=== PATIENT | male | born 1955 | race Caucasian/White ===

== ENCOUNTER 2017-04-11 19:13 | Inpatient (IN) | payer OTHER ==
--- NOTE | 2017-04-11 19:30 | EDPHY ---
H & P Stated Complaint: blood in stool Time Seen by Provider: 04/11/17 19:17 HPI/ROS: CHIEF COMPLAINT: Hematochezia HISTORY OF PRESENT ILLNESS: The patient is a 61-year-old male with history of ankylosing spondylitis who takes NSAIDs on a fairly frequent basis presents to the ED with a 1 day history of hematochezia. The patient has no prior history of the symptoms. The patient does not have a history of having a prior colonoscopy. The patient does not have regular primary care. The patient denies any acute abdominal pain. He denies fever, vomiting or diarrhea. The patient has had some travel to [place] recently. The patient denies any symptoms of an upper respiratory infection specifically denying fever cough or congestion. REVIEW OF SYSTEMS: A comprehensive 10 point review of systems is otherwise negative aside from elements mentioned in the history of present illness. Source: Patient Exam Limitations: No limitations - Family History Significant Family History: No pertinent family hx - Social History Smoking Status: Former smoker - Physical Exam Exam: General Appearance: Alert, no distress Eyes: Pupils equal and round no pallor or injection ENT, Mouth: Mucous membranes moist Respiratory: There are no retractions, lungs are clear to auscultation Cardiovascular: Regular rate and rhythm Gastrointestinal: Tenderness to palpation noted in the left lower quadrant Rectal exam: External hemorrhoids noted without obvious bleeding, digital rectal examination demonstrates bright red blood Neurological: Alert and oriented x4, 5/5 strength all 4 extremities Skin: Warm and dry, no rashes Musculoskeletal: Neck is supple nontender Extremities: symmetrical, full range of motion Constitutional: Initial Vital Signs Temperature (C) 36.6 C 04/11/17 19:18 Heart Rate 92 04/11/17 19:18 Respiratory Rate 18 04/11/17 19:18 Blood Pressure 146/88 H 04/11/17 19:18 O2 Delivery Mode Room Air Allergies/Adverse Reactions: No Known Allergies Allergy (Unverified 04/11/17 19:21) Medical Decision Making - Diagnostics Imaging Results: Imaging Impressions Abdomen CT 04/11/17 19:38 Impression: 1. Sigmoid diverticulosis. No acute diverticulitis, free fluid, or abscess. 2. Features consistent with ankylosing spondylitis. 3. Normal caliber atherosclerotic abdominal aorta. Findings discussed with Emergency Department physician, Fausto Boykin M.D. , on April 11, 2017 at 2028. ED Course/Re-evaluation: The patient presents to the ED with a 1 day history of hematochezia. He has minimal left lower quadrant tenderness noted on exam. The patient has no obvious bleeding hemorrhoid. The patient does have a history of ankylosing spondylitis and NSAID usage. The patient was noted to be hemodynamically stable upon arrival. He had an IV established. He was placed on a engine wiper. The patient was taken for CT scan of the abdomen pelvis which demonstrates diverticulosis without diverticulitis. The patient received 2 L of normal saline. I recheck his hematocrit. His gone from mid 30's to 24's. The patient continues to be hemodynamically stable. Consultation was made with Dr. Carpenter who is aware of the patient's admission to the hospital. At this point time the patient is hemodynamically stable and not having active bleeding. There is not an immediate need for emergent endoscopy. Dr. Carpenter has requested the hospitalist contact whoever is on-call for GI tomorrow morning and have them see the patient for further evaluation. I have relayed this information to Dr. Octaviano Toussaint who will admit the patient this evening. The patient has no epigastric pain or melena but has been taking NSAIDs for ankylosing spondylitis. The patient did receive 40 mg of IV Protonix. Differential Diagnosis: Differential diagnosis considered includes upper GI bleed, lower GI bleed, critical anemia, hypovolemic shock - Data Points Laboratory Results: Laboratory Results 04/11/17 Unknown 04/11/17 19:15 04/11/17 04/11/17 04/11/17 Unknown 21:45 19:26 WBC 11.24 10^3/uL H 10^3/uL (3.80-9.50) RBC 4.04 10^6/uL L 10^6/uL (4.40-6.38) Hgb 11.7 g/dL L g/dL (13.7-17.5) POC Hgb 8.2 gm/dL L gm/dL 10.5 gm/dL L gm/dL (13.7-17.5) (13.7-17.5) Hct 36.7 % L % (40.0-51.0) POC Hct 24 % L % 31 % L % (40-51) (40-51) MCV 90.8 fL fL (81.5-99.8) MCH 29.0 pg pg (27.9-34.1) MCHC 31.9 g/dL L g/dL (32.4-36.7) RDW 13.2 % % (11.5-15.2) Plt Count 281 10^3/uL 10^3/uL (150-400) MPV 10.5 fL fL (8.7-11.7) Neut % (Auto) 81.0 % H % (39.3-74.2) Lymph % (Auto) 12.0 % L % (15.0-45.0) [place] % (Auto) 5.8 % % (4.5-13.0) Eos % (Auto) 0.2 % L % (0.6-7.6) Baso % (Auto) 0.4 % % (0.3-1.7) Nucleat RBC Rel Count 0.0 % % (0.0-0.2) Absolute Neuts (auto) 9.11 10^3/uL H 10^3/uL (1.70-6.50) Absolute Lymphs (auto) 1.35 10^3/uL 10^3/uL (1.00-3.00) Absolute Monos (auto) 0.65 10^3/uL 10^3/uL (0.30-0.80) Absolute Eos (auto) 0.02 10^3/uL L 10^3/uL (0.03-0.40) Absolute Basos (auto) 0.04 10^3/uL 10^3/uL (0.02-0.10) Absolute Nucleated RBC 0.00 10^3/uL 10^3/uL (0-0.01) Immature Gran % 0.6 % % (0.0-1.1) Immature Gran # 0.07 10^3/uL 10^3/uL (0.00-0.10) PT INR APTT POC Sodium 140 mEq/L mEq/L 140 mEq/L mEq/L (134-144) (134-144) Sodium POC Potassium 4.5 mEq/L mEq/L 3.6 mEq/L mEq/L (3.3-5.0) (3.3-5.0) Potassium POC Chloride 106 mEq/L mEq/L 105 mEq/L mEq/L (97-110) (97-110) Chloride Carbon Dioxide Anion Gap POC BUN 20 mg/dL mg/dL 18 mg/dL mg/dL (7-23) (7-23) BUN Creatinine POC Creatinine 0.7 mg/dL mg/dL 0.9 mg/dL mg/dL (0.7-1.3) (0.7-1.3) Estimated GFR Glucose POC Glucose 96 mg/dL mg/dL 123 mg/dL H mg/dL (70-100) (70-100) Calcium Patient ABO/Rh Antibody Screen 04/11/17 04/11/17 04/11/17 19:15 19:15 19:15 WBC RBC Hgb POC Hgb Hct POC Hct MCV MCH MCHC RDW Plt Count MPV Neut % (Auto) Lymph % (Auto) [place] % (Auto) Eos % (Auto) Baso % (Auto) Nucleat RBC Rel Count Absolute Neuts (auto) Absolute Lymphs (auto) Absolute Monos (auto) Absolute Eos (auto) Absolute Basos (auto) Absolute Nucleated RBC Immature Gran % Immature Gran # PT 13.6 SEC SEC (12.0-15.0) INR 1.05 (0.83-1.16) APTT 27.7 SEC SEC (23.0-38.0) POC Sodium Sodium 135 mEq/L mEq/L (134-144) POC Potassium Potassium 4.5 mEq/L mEq/L (3.5-5.2) POC Chloride Chloride 99 mEq/L mEq/L (97-110) Carbon Dioxide 23 mEq/l mEq/l (22-31) Anion Gap 13 mEq/L mEq/L (8-16) POC BUN BUN 20 mg/dL mg/dL (7-23) Creatinine 1.1 mg/dL mg/dL (0.7-1.3) POC Creatinine Estimated GFR > 60 Glucose 142 mg/dL H mg/dL (70-100) POC Glucose Calcium 9.3 mg/dL mg/dL (8.5-10.4) Patient ABO/Rh A POSITIVE Antibody Screen NEGATIVE Medications Given: Discontinued Medications Sodium Chloride (Ns) 1,000 mls @ 0 mls/hr IV EDNOW ONE; Wide Open PRN Reason: Protocol Stop: 04/11/17 19:39 Last Admin: 04/11/17 19:39 Dose: 1,000 mls Sodium Chloride (Ns) 1,000 mls @ 0 mls/hr IV EDNOW ONE; Wide Open PRN Reason: Protocol Stop: 04/11/17 20:49 Last Admin: 04/11/17 20:51 Dose: 1,000 mls Point of Care Test Results: 04/11/17 04/11/17 19:26 21:45 POC Sodium 140 140 POC Potassium 3.6 4.5 POC Chloride 105 106 POC BUN 18 20 POC Creatinine 0.9 0.7 POC Glucose 123 H 96 Departure - Departure Disposition: [facility] Inpatient Acute Clinical Impression: Lower GI bleed, Ankylosing spondylitis Condition: Fair Referrals: Patient,NotPresent [Unknown] - As per Instructions
[2017-04-11] MEDS ORDERED: NS 1,000 ML IV ONE ×2 (19:38→20:48)
[2017-04-11 19:42] LABS: % IMMATURE GRANULYOCYTES 0.6 % (0.0-1.1); ABSOLUTE IMMATURE GRANULOCYTES 0.07 10^3/uL (0.00-0.10); ADD DIFF? NO; ADD MORPH? NO; ADD SCAN? NO; ATYPICAL LYMPHOCYTE FLAG 0 (0-99); FRAGMENT RBC FLAG 0 (0-99); HEMATOCRIT 36.7 % (40.0-51.0); HEMOGLOBIN 11.7 g/dL (13.7-17.5); LEFT SHIFT FLG 10 (0-99); LIPEMIA HEMOLYSIS FLAG 80 (0-99); MEAN CELL HEMOGLOBIN CONCENTR. 31.9 g/dL (32.4-36.7); MEAN CELL VOLUME 90.8 fL (81.5-99.8); MEAN PLATELET VOLUME 10.5 fL (8.7-11.7); PLATELET CLUMPS FLAG 10 (0-99); PLATELET COUNT 281 10^3/uL (150-400); RED BLOOD CELL COUNT 4.04 10^6/uL (4.40-6.38); RED CELL DISTRIBUTION WIDTH 13.2 % (11.5-15.2)
[2017-04-11 19:51] LABS: INR 1.05 (0.83-1.16); PROTIME(PATIENT) 13.6 SEC (12.0-15.0)
[2017-04-11 19:52] LABS: APTT 27.7 SEC (23.0-38.0)
[2017-04-11] MEDS ORDERED: IOPAMIDOL (ISOVUE-300) 100 ML BTL ONE (19:52)
[2017-04-11 19:55] LABS: ANION GAP 13 mEq/L (8-16); CALCIUM 9.3 mg/dL (8.5-10.4); CARBON DIOXIDE 23 mEq/l (22-31); CHLORIDE 99 mEq/L (97-110); CREATININE 1.1 mg/dL (0.7-1.3); GLOMERULAR FILTRATION RATE > 60; GLUCOSE 142 mg/dL (70-100); POTASSIUM 4.5 mEq/L (3.5-5.2); SODIUM 135 mEq/L (134-144)
[2017-04-11] MEDS ORDERED: PANTOPRAZOLE SODIUM 40 MG in NS 100 ML IV ONE (22:33)
[2017-04-12] MEDS ORDERED: ACETAMINOPHEN 325 MG TAB PO PRN (00:41)
[2017-04-12] MEDS ORDERED: oxyCODONE IR 5 MG TAB PO PRN (00:41)
[2017-04-12] MEDS ORDERED: ONDANSETRON DISINTEGRATING 4 MG TAB PO PRN (00:41)
[2017-04-12] MEDS ORDERED: ONDANSETRON 4 MG/2 ML VIAL IVP PRN (00:41)
[2017-04-12] MEDS ORDERED: PROMETHAZINE HCL 25 MG/ML INJ IVP PRN (00:41)
[2017-04-12] MEDS: NS 1,000 ML IV SCH ×4 (01:18→17:53)
[2017-04-12] MEDS: PANTOPRAZOLE SODIUM 80 MG in NS 100 ML IV SCH ×3 (01:18→20:16)
--- NOTE | 2017-04-12 01:43 | PDGENHP ---
History and Physical - Chief Complaint bleeding per rectum - History of Present Illness 61 yo M with PMH of on chronic NSAIDS as well as a remote hx of PUD and chronic GERD presenting with BRBPR beginning at approximately 11 am today. He notes that he proceeded to have multiple BMs all of which were largely just blood. He states his last bloody BM was around 6pm this evening. He has had similar issues in the past, but they were always mild and self limited, never this severe. He notes that he does have issues with severe heartburn necessitating taking cimetidine frequently throughout the day. He has been dizzy today and lightheaded, but has not had true syncope. He continues to feel weak. He has never had a colonoscopy. Patient also notes as an aside that for the last several years he has had bouts of near syncope, and these episodes are increasing in frequency. They occur at random, and often are so severe that he has to either sit down or pull his car over. He has never actually fainted and has not seen a doctor for this. He feels that deep breathing and vitamins seem to help with these issues. On a couple of occasions when this was occurring he took his pulse and noted it was in the 30s. History Information - Allergies/Home Medication List Allergies/Adverse Reactions: No Known Allergies Allergy (Unverified 04/11/17 19:21) I have personally reviewed and updated: family history, medical history, social history, surgical history - Past Medical History GERD Additional medical history: ankylosing spondylitis. superfical VTE BLE--not on AC - Surgical History Reports: no pertinent surgical hx - Family History Additional family history: Mother of complicatoins of alcoholism at age 70. 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, Review of Systems Review of Systems: ROS: 10pt was reviewed & negative except for what was stated in HPI & below Physical Exam Physical Exam: Temp Pulse Resp BP Pulse Ox 36.6 C 86 20 130/70 H 96 04/12/17 00:20 04/12/17 00:20 04/12/17 00:20 04/12/17 00:20 04/12/17 00:20 Constitutional: no apparent distress, appears nourished Eyes: PERRL, anicteric sclera Ears, Nose, Mouth, Throat: moist mucous membranes, hearing normal Cardiovascular: regular rate and rhythym, no murmur, rub, or gallop, No edema Respiratory: no respiratory distress, no rales or rhonchi Gastrointestinal: normoactive bowel sounds, soft, non-tender abdomen, No tenderness, No ascites, No guarding, No rebound Skin: warm, normal color Musculoskeletal: full muscle strength Neurologic: AAOx3 Psychiatric: interacting appropriately, not anxious, not encephalopathic Lab Data & Imaging Review 04/11/17 Unknown 04/11/17 19:15 WBC 11.24 10^3/uL (3.80-9.50) H 04/11/17 Unknown RBC 4.04 10^6/uL (4.40-6.38) L 04/11/17 Unknown Hgb 11.7 g/dL (13.7-17.5) L 04/11/17 Unknown POC Hgb 8.2 gm/dL (13.7-17.5) L 04/11/17 21:45 Hct 36.7 % (40.0-51.0) L 04/11/17 Unknown POC Hct 24 % (40-51) L 04/11/17 21:45 MCV 90.8 fL (81.5-99.8) 04/11/17 Unknown MCH 29.0 pg (27.9-34.1) 04/11/17 Unknown MCHC 31.9 g/dL (32.4-36.7) L 04/11/17 Unknown RDW 13.2 % (11.5-15.2) 04/11/17 Unknown Plt Count 281 10^3/uL (150-400) 04/11/17 Unknown MPV 10.5 fL (8.7-11.7) 04/11/17 Unknown Neut % (Auto) 81.0 % (39.3-74.2) H 04/11/17 Unknown Lymph % (Auto) 12.0 % (15.0-45.0) L 04/11/17 Unknown [place] % (Auto) 5.8 % (4.5-13.0) 04/11/17 Unknown Eos % (Auto) 0.2 % (0.6-7.6) L 04/11/17 Unknown Baso % (Auto) 0.4 % (0.3-1.7) 04/11/17 Unknown Nucleat RBC Rel Count 0.0 % (0.0-0.2) 04/11/17 Unknown Absolute Neuts (auto) 9.11 10^3/uL (1.70-6.50) H 04/11/17 Unknown Absolute Lymphs (auto) 1.35 10^3/uL (1.00-3.00) 04/11/17 Unknown Absolute Monos (auto) 0.65 10^3/uL (0.30-0.80) 04/11/17 Unknown Absolute Eos (auto) 0.02 10^3/uL (0.03-0.40) L 04/11/17 Unknown Absolute Basos (auto) 0.04 10^3/uL (0.02-0.10) 04/11/17 Unknown Absolute Nucleated RBC 0.00 10^3/uL (0-0.01) 04/11/17 Unknown Immature Gran % 0.6 % (0.0-1.1) 04/11/17 Unknown Immature Gran # 0.07 10^3/uL (0.00-0.10) 04/11/17 Unknown PT 13.6 SEC (12.0-15.0) 04/11/17 19:15 INR 1.05 (0.83-1.16) 04/11/17 19:15 APTT 27.7 SEC (23.0-38.0) 04/11/17 19:15 POC Sodium 140 mEq/L (134-144) 04/11/17 21:45 Sodium 135 mEq/L (134-144) 04/11/17 19:15 POC Potassium 4.5 mEq/L (3.3-5.0) 04/11/17 21:45 Potassium 4.5 mEq/L (3.5-5.2) 04/11/17 19:15 POC Chloride 106 mEq/L (97-110) 04/11/17 21:45 Chloride 99 mEq/L (97-110) 04/11/17 19:15 Carbon Dioxide 23 mEq/l (22-31) 04/11/17 19:15 Anion Gap 13 mEq/L (8-16) 04/11/17 19:15 POC BUN 20 mg/dL (7-23) 04/11/17 21:45 BUN 20 mg/dL (7-23) 04/11/17 19:15 Creatinine 1.1 mg/dL (0.7-1.3) 04/11/17 19:15 POC Creatinine 0.7 mg/dL (0.7-1.3) 04/11/17 21:45 Estimated GFR > 60 04/11/17 19:15 Glucose 142 mg/dL (70-100) H 04/11/17 19:15 POC Glucose 96 mg/dL (70-100) 04/11/17 21:45 Calcium 9.3 mg/dL (8.5-10.4) 04/11/17 19:15 Patient ABO/Rh A POSITIVE 04/11/17 19:15 Antibody Screen NEGATIVE 04/11/17 19:15 Visualized and Interpreted imaging results: Yes Interpretation: abd CT: sigmoid diverticulosis Assessment & Plan Assessment: Lower GI bleed (Acute) Ankylosing spondylitis (Acute) 61 yo M with hx of and chronic NSAID use presenting with BRBPR and acute blood loss anemia # BRBPR: suspect lower GI bleed, likely diverticular, versus brisk upper bleed given hx of chronic nsaid use and chronic gerd. BRB noted at rectum without obvious source. Patient will be continued on PPI gtt, kept NPO, serial h/h obtained. Unfortunately GI was consulted but states that they are unable to see the patient tomorrow and are requesting that GI be reconsulted in the morning so at this time, treatment plan is unclear in terms of EGD and colonoscopy tomorrow versus only EGD versus neither. Will hold off on starting bowel prep given this uncertainty. # acute blood loss anemia: in setting of above, most recent h/h 03/08 (though this was a POC lab), will repeat h/h and transfuse if continues to drop. As above. # GERD/hx of PUD: as above, continued on PPI gtt for now # : on daily naproxen for years which will be held given above, will need to be dc'ed on alternate pain regimen likely # recurrent near syncope: likely vasovagal however needs further evaluation. Discussed with patient that this should be worked up further, likely with at minimum holter monitor. He does not know who his PCP is currently. Will refer to [facility] for f/u after dc. # dispo: IP status, high risk presenting issue will require > 48 hours stay Patient new to my care. Old records reviewed and summarized as above. Care plan reviewed with ER doctor.
[2017-04-12 01:46] LABS: HEMATOCRIT 26.5 % (40.0-51.0); HEMOGLOBIN 8.7 g/dL (13.7-17.5)
[2017-04-12 05:28] LABS: % IMMATURE GRANULYOCYTES 0.5 % (0.0-1.1); ABSOLUTE IMMATURE GRANULOCYTES 0.03 10^3/uL (0.00-0.10); ADD DIFF? NO; ADD MORPH? NO; ADD SCAN? NO; ATYPICAL LYMPHOCYTE FLAG 10 (0-99); FRAGMENT RBC FLAG 0 (0-99); HEMATOCRIT 26.3 % (40.0-51.0); HEMOGLOBIN 8.5 g/dL (13.7-17.5); LEFT SHIFT FLG 0 (0-99); LIPEMIA HEMOLYSIS FLAG 80 (0-99); MEAN CELL HEMOGLOBIN 29.4 pg (27.9-34.1); MEAN CELL HEMOGLOBIN CONCENTR. 32.3 g/dL (32.4-36.7); MEAN PLATELET VOLUME 10.3 fL (8.7-11.7); PLATELET CLUMPS FLAG 0 (0-99); PLATELET COUNT 186 10^3/uL (150-400); RED BLOOD CELL COUNT 2.89 10^6/uL (4.40-6.38); RED CELL DISTRIBUTION WIDTH 13.3 % (11.5-15.2)
[2017-04-12 05:41] LABS: ALANINE AMINOTRANSFERASE 42 IU/L (21-72); ALBUMIN 2.7 g/dL (3.5-5.0); ALKALINE PHOSPHATASE 44 IU/L (38-126); ANION GAP 7 mEq/L (8-16); ASPARTATE AMINOTRANSFERASE 38 IU/L (17-59); BILIRUBIN,TOTAL 0.5 mg/dL (0.1-1.4); CALCIUM 7.9 mg/dL (8.5-10.4); CARBON DIOXIDE 22 mEq/l (22-31); CHLORIDE 108 mEq/L (97-110); CREATININE 0.8 mg/dL (0.7-1.3); GLOMERULAR FILTRATION RATE > 60; GLUCOSE 90 mg/dL (70-100); POTASSIUM 3.9 mEq/L (3.5-5.2); SODIUM 137 mEq/L (134-144)
[2017-04-12] MEDS ORDERED: PEG 3350/NA SULF,BICARB,CL/KCL (GAVILYTE-G) 4000 ML BTL PO ONE (07:59)
[2017-04-12 08:53] LABS: HEMATOCRIT 26.4 % (40.0-51.0); HEMOGLOBIN 8.5 g/dL (13.7-17.5)
--- NOTE | 2017-04-12 10:31 | HOSPPROG ---
Hospitalist Progress Note Assessment/Plan: GI bleed - Suspect lower / diverticular bleed. Hemodynamically stable. CT abd with diverticulosis. Discussed with GI. Mod-high risk. -trend H&H, transfuse as indicated -EGD / c-scope planned by GI -bowel prep started this am Acute blood loss anemia - Has not required transfusion, cont to monitor GERD - Cont IV PPI Ankylosing Spondylitis - stop NSAIDs due to GIB. Full code Dispo - cont inpt DVT PPLX - pharm c/i due to GIB Subjective: Pt doing well. He has had no more bloody stools overnight. No abdominal pain, N/V or fevers. Feels a bit weak. Objective: Vital Signs Temp Pulse Resp BP Pulse Ox 36.7 C 72 18 157/86 H 90 L 04/12/17 08:00 04/12/17 08:00 04/12/17 08:00 04/12/17 08:00 04/12/17 08:00 Laboratory Results 04/12/17 08:45 04/12/17 04:43 04/11/17 04/12/17 04/13/17 05:59 05:59 05:59 Intake Total 2774 Balance 2774 PT 13.6 SEC (12.0-15.0) 04/11/17 19:15 INR 1.05 (0.83-1.16) 04/11/17 19:15 - Physical Exam Constitutional: no apparent distress Eyes: PERRL Ears, Nose, Mouth, Throat: moist mucous membranes Cardiovascular: regular rate and rhythym, no murmur, rub, or gallop Respiratory: no respiratory distress, clear to auscultation Gastrointestinal: normoactive bowel sounds, soft, non-tender abdomen Skin: warm Musculoskeletal: full muscle strength Neurologic: AAOx3 Psychiatric: interacting appropriately ICD10 Worksheet Patient Problems: Problems Problem Status Onset Ankylosing spondylitis Acute Lower GI bleed Acute
--- NOTE | 2017-04-12 11:13 | ASMTCASEMG ---
Living Arrangements What is your living Answers: With Spouse arrangement? Who do you live with? Type Of Residence What kind of residence do Answers: House you live in? Discharge Plan Comments Coordination Status Comments Notes: Chart reviewed and spoke w/ BRENNAN Jackson, pt is a 61 y/o man admitted w/ a lower GI bleed. Pt will most likely discharge when he is medically stable w/ supportive . No therapies ordered at this time. CM available for changes. Date Signed: 04/12/2017 11:13 AM Electronically Signed By:HAKEEM Fletcher
--- NOTE | 2017-04-12 11:24 | GCON ---
[f rep st] CONSULTATION DATE OF CONSULTATION: 04/12/2017 REFERRING PHYSICIAN: Octaviano Toussaint MD CHIEF COMPLAINT: Rectal bleeding. I am asked to see the patient consultation by Dr. Toussaint for the chief complaint of lower GI bleed. HISTORY OF PRESENT ILLNESS: Patient is a 61-year-old who has history of underlying ankylosing spondylitis and has had episodes of intermittent bright red blood per rectum, but generally self-limited. Also has a remote history of peptic ulcer disease over 30 years ago who yesterday had acute onset of copious amounts of very bright red blood without significant abdominal pain. The last episode was last night. He presented to the emergency room for evaluation. The patient states he has had no further bleeding since last night but also describes having issues with early satiety, often feels bloated, frequently does not eat more than 1 or 2 meals a day. Has chronic GERD, for which he takes cimetidine but has had no vomiting, no hematemesis, no melena. Does use NSAIDs frequently for his underlying ankylosing spondylitis. Has occasional diarrhea but did not feel that this increased recently. No fevers or chills. No known family history of colon cancer or colon polyps. He has never had a colonoscopy. ALLERGIES: He has no known allergies. CURRENT MEDICATIONS: Naprosyn and multivitamins. PAST MEDICAL HISTORY: Notable for ankylosing spondylitis, GERD symptoms, and remote history of peptic ulcer disease. SOCIAL HISTORY: Patient drinks a cocktail every night. Does not smoke. FAMILY HISTORY: Negative for colon cancer or colon polyps. REVIEW OF SYSTEMS: I performed a complete review of systems which is negative except for the pertinent positives and negatives noted above in HPI. PHYSICAL EXAM: VITALS: He is afebrile at 36.6, 148/76, pulse 74. CONSTITUTIONAL: He is alert and oriented, no apparent distress. HEENT: Eyes: No scleral icterus. No oral lesions. CARDIOVASCULAR: Regular rate and rhythm. CHEST: Clear to auscultation. ABDOMEN: Distended but soft. No hepatosplenomegaly. No masses or rebound. NEUROLOGIC: Nonfocal. SKIN: No skin rashes. LABORATORY DATA: On admission, his H and H was 11.7 and 36.7. Today is 8.5 and 26.4. Pro time is normal. BUN is normal at 15 with a creatinine of 0.[address] LFTs are normal. CT scan of the abdomen showed sigmoid diverticulosis without diverticulitis. Evidence of ankylosing spondylitis. ASSESSMENT: The patient with lower gastrointestinal bleed with drop in hematocrit but currently hemodynamically stable. Most likely, this represents a diverticular bleed. However, patient has complicating factors such as underlying ankylosing spondylitis which can be associated with inflammatory bowel disease. He also takes high-dose nonsteroidal anti-inflammatory drugs, and this could also lead to intestinal or colonic ulcers. The patient has upper symptoms including gastroesophageal reflux disease and early satiety. Although I do not think this represents an upper gastrointestinal bleed, he is still at risk for peptic ulcer disease or partial gastric outlet obstruction, esophagitis. I do recommend endoscopic evaluation. For this patient, I would recommend both an upper and lower endoscopy to be completed once patient is able to complete his prep. I discussed sedation with the patient, and he prefers to use propofol sedation. PLAN: Patient to take prep today and we will arrange for upper and lower endoscopy with propofol once the prep is completed, hopefully this afternoon. I will continue to monitor his H and H. Thanks for this consult. /[id number]/MODL MTDD
[2017-04-12 13:11] LABS: HEMATOCRIT 31.4 % (40.0-51.0)
[2017-04-12] MEDS ORDERED: MAGNESIUM CITRATE 300 ML BOTTLE PO ONE (16:45)
[2017-04-12 17:15] LABS: HEMATOCRIT 28.5 % (40.0-51.0); HEMOGLOBIN 9.2 g/dL (13.7-17.5)
[2017-04-12 23:33] LABS: HEMATOCRIT 24.8 % (40.0-51.0); HEMOGLOBIN 7.9 g/dL (13.7-17.5)
[2017-04-13] MEDS: NS 1,000 ML IV SCH (01:58)
[2017-04-13 05:27] LABS: % IMMATURE GRANULYOCYTES 0.4 % (0.0-1.1); ABSOLUTE IMMATURE GRANULOCYTES 0.02 10^3/uL (0.00-0.10); ADD DIFF? NO; ADD MORPH? NO; ADD SCAN? NO; ATYPICAL LYMPHOCYTE FLAG 10 (0-99); FRAGMENT RBC FLAG 0 (0-99); HEMATOCRIT 24.1 % (40.0-51.0); HEMOGLOBIN 7.8 g/dL (13.7-17.5); LEFT SHIFT FLG 0 (0-99); LIPEMIA HEMOLYSIS FLAG 80 (0-99); MEAN CELL HEMOGLOBIN 29.7 pg (27.9-34.1); MEAN CELL HEMOGLOBIN CONCENTR. 32.4 g/dL (32.4-36.7); MEAN CELL VOLUME 91.6 fL (81.5-99.8); MEAN PLATELET VOLUME 10.3 fL (8.7-11.7); PLATELET CLUMPS FLAG 0 (0-99); PLATELET COUNT 167 10^3/uL (150-400); RED BLOOD CELL COUNT 2.63 10^6/uL (4.40-6.38); RED CELL DISTRIBUTION WIDTH 13.5 % (11.5-15.2)
[2017-04-13] MEDS: PANTOPRAZOLE SODIUM 80 MG in NS 100 ML IV SCH (05:49)
[2017-04-13] MEDS ORDERED: LIDOCAINE 2% 5 ML SDV ONE (08:46)
[2017-04-13] MEDS ORDERED: PROPOFOL/EMULSION 500 MG/50 ML BOTTLE IV ONE (08:46)
[2017-04-13] MEDS ORDERED: MIDAZOLAM 2 MG/2 ML VIAL ONE (08:46)
[2017-04-13] MEDS ORDERED: LR 1,000 ML IV ONE (08:47)
[2017-04-13] MEDS ORDERED: ALBUMIN 5% 250 ML BOTTLE IV ONE (08:50)
[2017-04-13] MEDS ORDERED: CALCIUM CHLORIDE 1 GM/10 ML INJ ONE (08:52)
--- NOTE | 2017-04-13 08:56 | PDANEPAE ---
ANE Past Medical History - Pulmonary History Hx Oxygen in Use at Home: No Hx Sleep Apnea: No Sleep Apnea Screening Result - Last Documented: Positive - Endocrine History Hx Diabetes: No - Other Health History Other Health History: ankylosis spondylitis - Chronic Pain History Chronic Pain: Yes ANE Review of Systems Review of Systems: ANE Patient History - Allergies Allergies/Adverse Reactions: No Known Allergies Allergy (Unverified 04/11/17 19:21) - Home Medications Home Medications: Multivitamins [Multivitamin (*)] 1 each PO DAILY 04/12/17 [Last Taken Unknown] Naproxen 500 mg PO DAILY 04/12/17 [Last Taken 04/11/17] - NPO status NPO Since - Liquids (Date): 04/13/17 NPO Since - Liquids (Time): 00:01 NPO Since - Solids (Date): 04/13/17 NPO Since - Solids (Time): 00:00 - Smoking Hx Smoking Status: Former smoker - Alcohol Use Alcohol Use: Occasionally ANE Labs/Vital Signs - Labs Result Diagrams: 04/13/17 05:02 04/12/17 04:43 - Vital Signs Blood Pressure: 167/88 Heart Rate: 79 Respiratory Rate: 18 O2 Sat (%): 91 Height: 185.42 cm Weight: 81.4 kg ANE Physical Exam - Airway Neck exam: FROM, decreased ROM, spinal fusion Mallampati Score: Class 3 Mouth exam: normal dental/mouth exam - Pulmonary Pulmonary: no respiratory distress, no rales or rhonchi, clear to auscultation, reduced air movement - Cardiovascular Cardiovascular: regular rate and rhythym, no murmur, rub, or gallop - ASA Status ASA Status: III ANE Anesthesia Plan Anesthesia Plan: GA with mask
[2017-04-13] MEDS ORDERED: NALOXONE HCL 0.4 MG/ML INJ IVP PRN (09:04)
[2017-04-13] MEDS ORDERED: LR 500 ML IV PRN (09:04)
[2017-04-13] MEDS ORDERED: fentaNYL 100 MCG/2 ML INJ IVP PRN (09:04)
--- NOTE | 2017-04-13 09:48 | POSTANESTH ---
Post Anesthetic Evaluation Cardiovascular Status: Normal, Stable Respiratory Status: Normal, Stable Level of Consciousness/Mental Status: Can Participate in Eval Pain Control: Adequate, Prn Tx Ordered Nausea/Vomiting Control: Adequate, Prn Tx Ordered Complications Possibly Related to Anesthesia: None Noted
--- NOTE | 2017-04-13 11:56 | SUROPNOTE ---
[facility] Operative Report - Surgery See endo note Pt doing well post EGD colon no pain. Wants to go home As all bleeding has stopped OK to D/C home if OK with hospitalist and will contact pt next week regarding biopsy results.
--- NOTE | 2017-04-13 12:05 | GIREPORT ---
[facility] - Endoscopy Department Patient Name: Emil Segura Procedure Date: 04/13/2017 9:02 AM Patient Type: Inpatient Attending MD/ ER Physician: Keren Barriga MD Procedure: Upper GI endoscopy Indications: Acute post hemorrhagic anemia, Heartburn Providers: Keren Barriga MD Medicines: Monitored Anesthesia Care Complications: No immediate complications. Description of Procedure: After obtaining informed consent, the endoscope was passed under direct vision. Throughout the procedure, the patient's blood pressure, pulse, and oxygen saturations were monitored continuous ly. The Endoscope was introduced through the mouth, and advanced to the duodenal bulb. The upper GI endoscopy was accomplished without difficulty. The patient tolerated the procedure well. Findings: The esophagus was normal. Two localized, small non-bleeding erosions were found in the gastric antrum. There were no stigm kayla of recent bleeding. Biopsies were taken with a cold forceps for histology. Estimated blood loss was minimal. The examined duodenum was normal. Estimated Blood Loss: Estimated blood loss was minimal. Post Op Diagnosis: - Normal esophagus. - Non-bleeding erosive gastropathy. Biopsied. - Normal examined duodenum. Recommendation: - Await pathology results. - Advance diet as tolerated. - Use Protonix (pantoprazole) 40 mg PO daily for 12 weeks. - Colonoscopy today. Attending Participation: I personally performed the entire procedure. Keren Barriga MD Keren Barriga MD 04/13/2017 9:33:17 AM Number of Addenda: 0 Note Initiated On: 04/13/2017 9:02 AM [email or web address]
--- NOTE | 2017-04-13 12:05 | GIREPORT ---
[facility] - Endoscopy Department Patient Name: Emil Segura Procedure Date: 04/13/2017 9:10 AM Patient Type: Inpatient Attending MD/ ER Physician: Keren Barriga MD Procedure: Colonoscopy Indications: Hematochezia Providers: Keren Barriga MD Medicines: Monitored Anesthesia Care Complications: No immediate complications. Description of Procedure: After obtaining informed consent, the scope was passed under direct vision. Throughout the proce dure, the patient's blood pressure, pulse, and oxygen saturations were monitored continuously. The Colonoscope with irrigation channel was introduced through the anus and advanced to the terminal ileum. The colonoscopy was performed without difficulty. The patient tolerated the procedure wel l. The quality of the bowel preparation was good. The terminal ileum, ileocecal valve, appendiceal orifice, and rectum were photographed. Findings: The perianal exam findings include non-thrombosed external hemorrhoids. Multiple diverticula were found in the sigmoid colon and descending colon. The terminal ileum contained a few localized non-bleeding erosions. Biopsies were taken with a c old forceps for histology. Estimated blood loss was minimal. Estimated Blood Loss: Estimated blood loss was minimal. Post Op Diagnosis: - Non-thrombosed external hemorrhoids found on perianal exam. - Diverticulosis in the sigmoid colon and in the descending colon. - A few erosions in the terminal ileum. Biopsied. Consider crohn's disease. Recommendation: - Await pathology results. - Monitor H+H until stable. - Consider emperic steroids vs wait for biopsies. Dr. Medellin to see patient tomorrow. - Advance diet as tolerated. - [facility] patient to [facility] for [facility] care. Attending Participation: I personally performed the entire procedure. Keren Barriga MD Keren Barriga MD 04/13/2017 9:36:39 AM Number of Addenda: 0 Note Initiated On: 04/13/2017 9:10 AM Total Procedure Duration Time 0 hours 13 minutes 53 seconds [email or web address]
[2017-04-13 13:36] LABS: HEMATOCRIT 24.4 % (40.0-51.0); HEMOGLOBIN 7.6 g/dL (13.7-17.5)
--- NOTE | 2017-04-13 14:51 | HOSPPROG ---
Hospitalist Progress Note Assessment/Plan: GI bleed - EGD/c-scope today showed gastric erosions and terminal ileum erosions. With h/o , query Crohn's / IBD. Case d/w Dr. Barriga. -await pathology -defer steroids for now. If this is not IBD, could be worse with steroids -advance diet as tolerated Acute blood loss anemia - Has not required transfusion, though hgb continues to trend down, 11.7 --> 7.6. Hemodynamically stable. -continue to follow, if hgb keeps dropping, will transfuse GERD - Change to po PPI Ankylosing Spondylitis - stop NSAIDs due to GIB. Full code Dispo - cont inpt, d/c in am if h&h stable and no more bleeding DVT PPLX - pharm c/i due to GIB Total of 35 minutes spent providing face to face care, discussing plan and answering question Subjective: Pt feels well, though admits being a bit weak. No further rectal bleeding. Remains NPO with IVF's running since endo today. No CP or SOB. No fevers. No abdominal pain. Objective: Vital Signs Temp Pulse Resp BP Pulse Ox 36.8 C 66 18 132/79 H 91 L 04/13/17 11:35 04/13/17 12:30 04/13/17 11:35 04/13/17 12:30 04/13/17 11:35 Laboratory Results 04/13/17 13:28 04/12/17 04:43 04/12/17 04/13/17 04/14/17 05:59 05:59 05:59 Intake Total 2774 3120 470 Output Total 1700 Balance 2774 1420 470 PT 13.6 SEC (12.0-15.0) 04/11/17 19:15 INR 1.05 (0.83-1.16) 04/11/17 19:15 - Physical Exam Constitutional: no apparent distress Eyes: PERRL Ears, Nose, Mouth, Throat: moist mucous membranes Cardiovascular: regular rate and rhythym Respiratory: no respiratory distress, clear to auscultation Gastrointestinal: normoactive bowel sounds, soft, non-tender abdomen Skin: warm Musculoskeletal: full muscle strength Neurologic: AAOx3 Psychiatric: interacting appropriately ICD10 Worksheet Patient Problems: Problems Problem Status Onset Ankylosing spondylitis Acute Lower GI bleed Acute
[2017-04-13 17:56] LABS: HEMATOCRIT 27.2 % (40.0-51.0); HEMOGLOBIN 8.7 g/dL (13.7-17.5)
[2017-04-13 23:18] LABS: HEMATOCRIT 24.2 % (40.0-51.0); HEMOGLOBIN 7.9 g/dL (13.7-17.5)
[2017-04-14 04:42] LABS: % IMMATURE GRANULYOCYTES 0.3 % (0.0-1.1); ABSOLUTE IMMATURE GRANULOCYTES 0.02 10^3/uL (0.00-0.10); ADD DIFF? NO; ADD MORPH? NO; ADD SCAN? NO; ATYPICAL LYMPHOCYTE FLAG 20 (0-99); FRAGMENT RBC FLAG 0 (0-99); HEMATOCRIT 24.7 % (40.0-51.0); HEMOGLOBIN 7.8 g/dL (13.7-17.5); LEFT SHIFT FLG 0 (0-99); LIPEMIA HEMOLYSIS FLAG 80 (0-99); MEAN CELL HEMOGLOBIN CONCENTR. 31.6 g/dL (32.4-36.7); MEAN CELL VOLUME 91.8 fL (81.5-99.8); MEAN PLATELET VOLUME 10.2 fL (8.7-11.7); PLATELET CLUMPS FLAG 0 (0-99); PLATELET COUNT 175 10^3/uL (150-400); RED BLOOD CELL COUNT 2.69 10^6/uL (4.40-6.38); RED CELL DISTRIBUTION WIDTH 13.3 % (11.5-15.2)
[2017-04-14 07:24] VITALS: BP 139/69; PULSE 64; RESP 13; TEMP 98.3; O2SAT 93
[2017-04-14] MEDS ORDERED: PANTOPRAZOLE SODIUM 40 MG TAB PO SCH (09:00)
--- NOTE | 2017-04-14 14:08 | ASDISCHSUM ---
Discharge Information Plan Status:Home with No Needs Medically Cleared to Leave:04/14/2017 Discharge Date:04/14/2017 10:50 AM CM D/C Disposition:Home, Routine, Self-Care ADT D/C Disposition:Home, Routine, Self-Care Projected Discharge Date:04/13/2017 12:00 AM Transportation at D/C:Family Discharge Delay Reason: Follow-Up Date:04/13/2017 12:00 AM Discharge Slot: Final Diagnosis:GI Bleed, acute blood loss anemia, GERD, Ankylosing Spondylitis Placement Information Patient Contact Information Contact Name:ROLA Relationship: Address: Work Phone: City: [facility] Phone: State/Zip Code: Email: Financial Information Financial Class:HMO and PPO Plans Primary Plan Desc:HMO [place] [employer] Primary Plan Number:[id number] Secondary Plan Desc: Secondary Plan Number: Assessment Information [facility] Initial CM Assessment Living Arrangements What is your living Answers: With Spouse arrangement? Who do you live with? Type Of Residence What kind of residence do Answers: House you live in? Discharge Plan Comments Coordination Status Comments Notes: Chart reviewed and spoke w/ BRENNAN Jackson, pt is a 61 y/o man admitted w/ a lower GI bleed. Pt will most likely discharge when he is medically stable w/ supportive . No therapies ordered at this time. CM available for changes. Date Signed: 04/12/2017 11:13 AM Electronically Signed By:HAKEEM Fletcher [facility] CM Progress Note CM Note CM Note Notes: Reviewed chart re: d/c poc, pt's progress. Pt to discharge home today w/ family support and no identified needs. No PT/OT orders. Pt to f/u as directed. CM avail for any further issues or concerns. Date Signed: 04/14/2017 02:06 PM Electronically Signed By:Ami Ham RN Intervention Information Intervention Type:*Incorrect Registration Date of Service:04/12/2017 08:48 AM Patient Type:Inpatient Staff Member:BRENNAN Gamino, Kandace Hours: Discipline: Severity: Comment:
--- NOTE | 2017-04-14 21:26 | GDS ---
[f rep st] DISCHARGE SUMMARY DISCHARGE DIAGNOSES: 1. Upper gastrointestinal bleed. 2. Acute blood loss anemia, which did not require transfusion. 3. Ankylosing spondylitis. 4. Gastroesophageal reflux disease. 5. Intermittent hypoxemia, possibly secondary to poor chest wall excursion in the setting of ankylos ing spondylitis versus obstructive sleep apnea. The patient refused home oxygen. 6. Superficial thrombophlebitis. 7. Chronic nonsteroidal anti-inflammatory drug use. HISTORY OF PRESENT ILLNESS: For details, please see the history and physical dated 04/12/2017. In [facility], the patient is a 61-year-old male with a history of ankylosing spondylitis and gastroesophageal reflux, as well as remote history of peptic ulcer disease, who presents to the Emergency Department with bright red blood per rectum. He was admitted to the hospital for further management. CONSULTANTS: Dr. Keren Barriga, Gastroenterology. HOSPITAL COURSE: The patient was admitted to Progressive Care Unit and monitored on telemetry. He u nderwent upper and lower endoscopy performed by Dr. Keren Barriga, mine development engineer. The colono scopy showed just non-thrombosed external hemorrhoids, both diverticulosis in the sigmoid colon and i n the descending colon, with a few non-bleeding erosions in the terminal ileum, which were biopsied. Upper endoscopy also revealed some small non-bleeding erosions in the gastric antrum. Biopsies were also taken of these lesions. The esophagus and duodenum appeared normal. Overall, there was no hamzah dence of active bleeding on either his upper or lower endoscopy. He was treated with IV PPI therapy and IV fluids. His hemoglobin was 11.7 on arrival, and this trended down to 7.8. This remained stab le for 24 hours prior to discharge. He no further evidence of bleeding. There was some consideratio n given to inflammatory bowel disease such as Crohn's disease, as there is a correlation of this with ankylosing spondylitis. However, steroids were deferred until biopsy data is reviewed due to the fa ct that they could worsen his disease if these erosions are not due to Crohn's and secondary to NSAID use. He has been advised to stop his Naprosyn, which he has been taking daily for quite some time f or his superficial thrombophlebitis. The patient was also noted to have a couple of oxygen desaturation events during the nighttime. At w orst he desatted to 83% and required 2 L of oxygen. A chest x-ray was performed that revealed hypere xpanded lungs, as well as subsegmental atelectasis and/or fibrotic change at the lung bases, left mariluz e greater than the right. In addition, an ankylose of thoracic spine is noted. He has no known hist ory of COPD. He should have outpatient followup pulmonary function tests, in addition to an outpatie nt sleep study to evaluate for obstructive sleep apnea or possibility COPD. It does not sound like ashwini barrios has a significant tobacco history. If he does rule in for COPD, would consider alpha-1 antitrypsin testing. I recommended the patient discharge with nocturnal oxygen. He refuses this. I did give h im incentive spirometer to encourage more deep breathing, as he likely has poor chest wall expansion due to his ankylosing spondylitis. Overall, the patient is hemodynamically stable at the time of dis charge, and he strongly desires to go home. DISPOSITION: The patient is discharged home in stable condition. FOLLOWUP: 1. The patient is referred to Dr. Christie Cosme to establish care with primary care physician. 2. Dr. Keren Barriga, Gastroenterology, for followup on his pending pathology of his gastric and terminal ileum biopsies. 3. He should follow up with Pulmonology for outpatient pulmonary function test, as well as sleep abena dy. PENDING STUDIES: As above, include pathology report on his stomach and ileum biopsies. /[id number]/MODL
== END 2017-04-14 10:50 | disposition home or self-care (01) | DRG 378 ==
LOC: OBSVTOIN 22:29 → F2W 04-12 00:15
PROVIDERS: ADMIT Internal Medicine; ATTEND Internal Medicine
DX: K57.81 Diverticulitis of intestine, part unspecified, with perforation and abscess with bleeding (principal); D62 Acute posthemorrhagic anemia; M45.4 Ankylosing spondylitis of thoracic region; K21.9 Gastro-esophageal reflux disease without esophagitis; R09.02 Hypoxemia; I80.8 Phlebitis and thrombophlebitis of other sites; K64.4 Residual hemorrhoidal skin tags; J99 Respiratory disorders in diseases classified elsewhere; Z79.52 Long term (current) use of systemic steroids; Z87.891 Personal history of nicotine dependence
CPT/HCPCS: 82947-QW; 96365; J0171; J2250; J2704; P9041; Q9967

== ENCOUNTER 2017-04-16 12:43 | Inpatient (IN) | payer OTHER ==
--- NOTE | 2017-04-16 13:08 | CPEKG ---
Heart Rate: 77 RR Interval: 779 P-R Interval: 140 QRSD Interval: 84 QT Interval: 400 QTC Interval: 453 P [place]: 66 QRS [place]: 63 T Wave [place]: 54 EKG Severity - ABNORMAL ECG - EKG Impression: SINUS RHYTHM EKG Impression: CONSIDER LEFT VENTRICULAR HYPERTROPHY Electronically Signed By: Lorraine Rodriguez 16-Apr-2017 19:42:10
--- NOTE | 2017-04-16 13:11 | EDPHY ---
H & P Time Seen by Provider: 04/16/17 12:53 HPI/ROS: CHIEF COMPLAINT: Rectal bleeding HISTORY OF PRESENT ILLNESS: 61-year-old male with a history of ankylosing spondylitis and recent admission for GI bleed presents with rectal bleeding. Onset of bright red blood per rectum at 9:45 a.m. this morning. 4-5 episodes since then. Associated with dizziness, shortness of breath and a pressure sensation on his chest. During his hospitalization, his oxygen saturation was noted to be quite low, down to 83% on room air. Providers suggested that he be discharged home on oxygen, but he refused. Since then, he states that he has been feeling okay and not really short of breath with exertion until today. No history of pulmonary embolism, recent prolonged flight or leg swelling/pain. REVIEW OF SYSTEMS: Constitutional: No fever, no chills Eyes: No visual changes ENT: No sore throat Respiratory: No cough Gastrointestinal: no vomiting, no abdominal pain Genitourinary: no dysuria Musculoskeletal: No leg pain or swelling Skin: No rash Neurological: No headache Psychiatric: No depression Past Medical/Surgical History: Ankylosing spondylitis GI bleed Social History: Smoking Status: Former smoker Physical Exam: General Appearance: Alert, pleasant, dyspneic with any movement. Eyes: Pupils equal and round, no conjunctival pallor or injection ENT, Mouth: Mucous membranes moist Neck: Normal inspection Respiratory: decreased breath sounds at the bases Cardiovascular: Regular rate and rhythm Gastrointestinal: Abdomen is soft and nontender Rectal: Trace stool present, bright red blood Neurological: A&O, nonfocal exam Skin: Warm and dry, no rash Extremities: Nontender, no pedal edema Psychiatric: Mood and affect normal Constitutional: Initial Vital Signs Blood Pressure 116/78 04/16/17 13:36 O2 Delivery Mode Room Air Allergies/Adverse Reactions: No Known Allergies Allergy (Unverified 04/11/17 19:21) Home Medications: Medication Instructions Recorded Multivitamins [Multivitamin (*)] 1 each PO DAILY 04/12/17 Pantoprazole Sodium [Protonix 40mg 40 mg PO BID #60 tab 04/14/17 (*)] traMADol [Ultram 50 mg (*)] 25 mg PO Q8H PRN #60 tab 04/14/17 Medical Decision Making - Diagnostics EKG Interpretation: EKG interpreted by me reveals normal sinus rhythm, rate 77, LVH. Imaging Results: Imaging Impressions Chest X-Ray 04/16/17 13:07 Impression: No evidence for acute cardiopulmonary abnormality. Stable chronic findings as above. ED Course/Re-evaluation: This patient presents with rectal bleeding, as well as shortness of breath and chest pain. Placed on oxygen 2 L by nasal cannula, repeat pulse oximetry 97%. Stat EKG reveals no evidence of ischemia. ASA contraindicated, given current GI hemorrhage. Rectal exam is heme positive. I-STAT hematocrit is 27, slightly higher than hematocrit on discharge of 24.7. A 2nd line placed and IVF given. He will be admitted to the ICU for lower GI bleed. The hospitalist service was consulted for admission. Dr. Whitfield consulted, will see pt in hospital. Plan for repeat colonoscopy. Initial D-dimer and troponin normal, will need further cardiopulmonary evaluation, given significant hypoxia and chest discomfort. Differential Diagnosis: Includes does not limited to hemorrhagic shock, upper GI bleed, bleeding peptic ulcer, esophageal varices, AVM, diverticulosis Critical Care Time: I spent a total of 35 minutes of critical care time in obtaining history, performing a physical exam, bedside monitoring of interventions, collecting and interpreting tests and discussion with consultants but not including time spent performing procedures. - Data Points Laboratory Results: Laboratory Results 04/16/17 12:55 04/16/17 12:55 04/16/17 04/16/17 04/16/17 12:55 12:55 12:55 WBC RBC Hgb POC Hgb Hct POC Hct MCV MCH MCHC RDW Plt Count MPV Neut % (Auto) Lymph % (Auto) [place] % (Auto) Eos % (Auto) Baso % (Auto) Nucleat RBC Rel Count Absolute Neuts (auto) Absolute Lymphs (auto) Absolute Monos (auto) Absolute Eos (auto) Absolute Basos (auto) Absolute Nucleated RBC Immature Gran % Immature Gran # D-Dimer POC Sodium Sodium 139 mEq/L mEq/L (134-144) POC Potassium Potassium 3.9 mEq/L mEq/L (3.5-5.2) POC Chloride Chloride 102 mEq/L mEq/L (97-110) Carbon Dioxide 23 mEq/l mEq/l (22-31) Anion Gap 14 mEq/L mEq/L (8-16) POC BUN BUN 18 mg/dL mg/dL (7-23) Creatinine 1.1 mg/dL mg/dL (0.7-1.3) POC Creatinine Estimated GFR > 60 Glucose 137 mg/dL H mg/dL (70-100) POC Glucose Calcium 9.1 mg/dL mg/dL (8.5-10.4) Troponin I < 0.012 ng/mL ng/mL (0.000-0.034) NT-Pro-B Natriuret Pep 142 pg/mL H pg/mL (0-125) Stool Occult Bld Scrn POSITIVE H (NEGATIVE) Patient ABO/Rh A POSITIVE Antibody Screen NEGATIVE 04/16/17 04/16/17 04/16/17 12:55 12:55 12:51 WBC 9.47 10^3/uL 10^3/uL (3.80-9.50) RBC 2.78 10^6/uL L 10^6/uL (4.40-6.38) Hgb 8.2 g/dL L g/dL (13.7-17.5) POC Hgb 9.2 gm/dL L gm/dL (13.7-17.5) Hct 25.4 % L % (40.0-51.0) POC Hct 27 % L % (40-51) MCV 91.4 fL fL (81.5-99.8) MCH 29.5 pg pg (27.9-34.1) MCHC 32.3 g/dL L g/dL (32.4-36.7) RDW 13.6 % % (11.5-15.2) Plt Count 293 10^3/uL D 10^3/uL (150-400) MPV 10.2 fL fL (8.7-11.7) Neut % (Auto) 79.3 % H % (39.3-74.2) Lymph % (Auto) 12.6 % L % (15.0-45.0) [place] % (Auto) 7.3 % % (4.5-13.0) Eos % (Auto) 0.1 % L % (0.6-7.6) Baso % (Auto) 0.4 % % (0.3-1.7) Nucleat RBC Rel Count 0.0 % % (0.0-0.2) Absolute Neuts (auto) 7.51 10^3/uL H 10^3/uL (1.70-6.50) Absolute Lymphs (auto) 1.19 10^3/uL 10^3/uL (1.00-3.00) Absolute Monos (auto) 0.69 10^3/uL 10^3/uL (0.30-0.80) Absolute Eos (auto) 0.01 10^3/uL L 10^3/uL (0.03-0.40) Absolute Basos (auto) 0.04 10^3/uL 10^3/uL (0.02-0.10) Absolute Nucleated RBC 0.00 10^3/uL 10^3/uL (0-0.01) Immature Gran % 0.3 % % (0.0-1.1) Immature Gran # 0.03 10^3/uL 10^3/uL (0.00-0.10) D-Dimer 0.47 ug/mLFEU ug/mLFEU (0.00-0.50) POC Sodium 140 mEq/L mEq/L (134-144) Sodium POC Potassium 3.6 mEq/L mEq/L (3.3-5.0) Potassium POC Chloride 102 mEq/L mEq/L (97-110) Chloride Carbon Dioxide Anion Gap POC BUN 19 mg/dL mg/dL (7-23) BUN Creatinine POC Creatinine 1.2 mg/dL mg/dL (0.7-1.3) Estimated GFR Glucose POC Glucose 141 mg/dL H mg/dL (70-100) Calcium Troponin I NT-Pro-B Natriuret Pep Stool Occult Bld Scrn Patient ABO/Rh Antibody Screen Medications Given: Pantoprazole Sodium 80 mg/ (Sodium Chloride) 100 mls @ 10 mls/hr IV Q10H ELLA Stop: 10/13/17 16:44 Last Admin: 04/16/17 17:46 Dose: 100 mls Discontinued Medications Sodium Chloride (Ns) 1,000 mls @ 0 mls/hr IV ONCE ONE PRN Reason: Wide Open Stop: 04/16/17 14:47 Last Admin: 04/16/17 13:00 Dose: 1,000 mls Point of Care Test Results: 04/16/17 12:51 POC Sodium 140 POC Potassium 3.6 POC Chloride 102 POC BUN 19 POC Creatinine 1.2 POC Glucose 141 H Departure - Departure Disposition: [facility] Acute Clinical Impression: Lower GI hemorrhage, Severe anemia Ankylosing spondylitis Qualifiers: Ankylosing spondylitis location: unspecified site of spine Qualified Code(s): M45.9 - Ankylosing spondylitis of unspecified sites in spine Condition: Serious
[2017-04-16 13:16] LABS: % IMMATURE GRANULYOCYTES 0.3 % (0.0-1.1); ABSOLUTE IMMATURE GRANULOCYTES 0.03 10^3/uL (0.00-0.10); ADD DIFF? NO; ADD MORPH? NO; ADD SCAN? NO; ATYPICAL LYMPHOCYTE FLAG 10 (0-99); FRAGMENT RBC FLAG 0 (0-99); HEMATOCRIT 25.4 % (40.0-51.0); HEMOGLOBIN 8.2 g/dL (13.7-17.5); LEFT SHIFT FLG 0 (0-99); LIPEMIA HEMOLYSIS FLAG 80 (0-99); MEAN CELL HEMOGLOBIN 29.5 pg (27.9-34.1); MEAN CELL HEMOGLOBIN CONCENTR. 32.3 g/dL (32.4-36.7); MEAN CELL VOLUME 91.4 fL (81.5-99.8); MEAN PLATELET VOLUME 10.2 fL (8.7-11.7); PLATELET CLUMPS FLAG 10 (0-99); PLATELET COUNT 293 10^3/uL (150-400); RED BLOOD CELL COUNT 2.78 10^6/uL (4.40-6.38); RED CELL DISTRIBUTION WIDTH 13.6 % (11.5-15.2)
[2017-04-16 14:01] LABS: ANION GAP 14 mEq/L (8-16); CALCIUM 9.1 mg/dL (8.5-10.4); CARBON DIOXIDE 23 mEq/l (22-31); CHLORIDE 102 mEq/L (97-110); CREATININE 1.1 mg/dL (0.7-1.3); GLOMERULAR FILTRATION RATE > 60; GLUCOSE 137 mg/dL (70-100); POTASSIUM 3.9 mEq/L (3.5-5.2); SODIUM 139 mEq/L (134-144)
[2017-04-16 14:16] LABS: TROPONIN I < 0.012 ng/mL (0.000-0.034)
[2017-04-16] MEDS ORDERED: NS 1,000 ML IV ONE (14:46)
[2017-04-16] MEDS ORDERED: ACETAMINOPHEN 325 MG TAB PO PRN (16:02)
[2017-04-16] MEDS ORDERED: ONDANSETRON 4 MG/2 ML VIAL IVP PRN (16:02)
[2017-04-16] MEDS ORDERED: PROMETHAZINE HCL 25 MG/ML INJ IVP PRN (16:02)
[2017-04-16] MEDS ORDERED: ONDANSETRON DISINTEGRATING 4 MG TAB PO PRN (16:02)
[2017-04-16] MEDS ORDERED: HYDROmorphONE/DILAUDID 1 MG/ML INJ IVP PRN (16:02)
[2017-04-16] MEDS ORDERED: traMADol 50 MG TAB PO PRN (16:05)
--- NOTE | 2017-04-16 17:13 | GHP ---
[f rep st] HISTORY AND PHYSICAL DATE OF ADMISSION: 04/16/2017 CHIEF COMPLAINT: Bright red blood per rectum. HISTORY: This is a 61-year-old man who was recently hospitalized at this hospital for GI bleed. At that hospitalization, he was worked up with upper and lower endoscopy, which showed various erosions both in the terminal ilium, gastric antrum, none of which appear to be bleeding. He also was noted t o have non-thrombosed external hemorrhoids and diverticulosis of the sigmoid and descending colon. T here was no source of the bleed found on that hospitalization. He did require transfusion. He was d ischarged on 04/14/2017, and at that time felt well. At the time of discharge, his hematocrit was 24 .7. He did well until this morning when he again developed heavy bleeding per rectum. He notes that it was as much or more than prior. He had several episodes, maybe 5. He did feel lightheaded after wards. He notes his last bloody bowel movement was at 11:40 this morning. He has not been taking NS AIDs since his last hospitalization. Gastroenterology was consulted and recommends at this time a ta gged red blood cell study and that they will follow up with further recommendations after that is com pleted. The patient has no other complaints including abdominal pain, nausea, or vomiting. PAST MEDICAL HISTORY: 1. Includes GI bleed, as per HPI. 2. Acute blood loss anemia, as per HPI. 3. Ankylosing spondylitis. 4. Superficial venous thromboembolus. SURGICAL HISTORY: None. FAMILY HISTORY: Mother with alcoholism. Father dying of emphysema at age 85. SOCIAL HISTORY: Patient is a prior smoker. He is . Denies heavy alcohol use. Denies drug u se. MEDICATIONS: Include: 1. Tramadol. 2. Protonix. 3. Multivitamin. ALLERGIES: No known drug allergies. PHYSICAL EXAMINATION: VITAL SIGNS: BP 144/85, heart rate 68, respiratory rate 16, O2 sats 97% on ro om air. Temperature is 36.9. GENERAL APPEARANCE: This is a well-developed, well-nourished man. He is awake and alert. He is in no acute distress. EYES: Anicteric. HENT: Oropharynx clear. CARDI OVASCULAR: Regular rate and rhythm, no MRG. PULMONARY: CTA bilaterally. Normal work of breathing. ABDOMEN: Soft, nontender. Positive bowel sounds. EXTREMITIES: No clubbing, cyanosis, or edema. SKIN: Warm, dry, well perfused. NEURO/PSYCH: Oriented and appropriate, pleasant. CLINICAL DATA: Labs reviewed and notable for hemoglobin of 25.4, which is stable from 24.7 several d ays ago. D-dimer was 0.47. Chemistry is notable for a glucose of 137. Occult blood screen was posi tive. Chest x-ray, personally reviewed and interpreted, shows nothing acute. EKG, personally review ed and interpreted, shows sinus rhythm, no ischemic changes. ASSESSMENT/PLAN: This is a 61-year-old man with past medical history of gastrointestinal bleed, pres enting with recurrent gastrointestinal bleed. 1. Acute gastrointestinal bleed. This is similar to his last presentation with only bright red bloo d per rectum, large volume, which ended spontaneously. The patient does have known diverticulosis, a nd this sounds most consistent with a diverticular bleed. He did, however, also have some erosions n oted on esophagogastroduodenoscopy. He does have a longstanding history of nonsteroidal anti-inflamm atory use for his ankylosing spondylitis. Gastroenterology has been consulted, and at this time they are recommending tagged red blood cell scan. This will be completed tonight. Further recommendatio ns to follow. 2. Acute blood loss anemia. Patient's H and H have been stable since his last hospitalization. We will continue to trend. He did require transfusion at his last hospitalization, but currently no ind ication for transfusion. 3. Near syncope. This is in setting of acute blood loss, likely related to same. 4. Ankylosing spondylitis, for which he was previously on nonsteroidal anti-inflammatories, which ar e being held. We will continue tramadol and p.r.n. opiates. 5. Disposition. Observation status for now. Pending clinical course. Patient may require less lauro n 48 hours stay for evaluation and management of above. 6. Patient is new to my care. Old records reviewed, summarized as per History of Present Illness an d Past Medical History. Care plan reviewed with emergency room physician, including plans for gastro intestinal consultation. Care plan also reviewed with Gastroenterology. /[id number]/MODL
[2017-04-16] MEDS: PANTOPRAZOLE SODIUM 80 MG in NS 100 ML IV SCH (17:46)
[2017-04-16 19:43] LABS: HEMATOCRIT 22.7 % (40.0-51.0); HEMOGLOBIN 7.2 g/dL (13.7-17.5)
[2017-04-16] MEDS ORDERED: PANTOPRAZOLE SODIUM 40 MG TAB PO SCH (21:00)
--- NOTE | 2017-04-16 21:23 | SOAPPROG ---
[facility] Progress Note Assessment/Plan: Assessment: Plan: 04/16/17 15:21 GI Note A/P 1. GI bleed lower- recurrent. Prior EGD and colonoscopy last week. Suspect diverticular bleed Recommend to proceed with bleeding scan. Discussed with hospitalist. See dictated consult for details. Objective: Vital Signs Temp Pulse Resp BP Pulse Ox 36.9 C 65 16 132/69 H 94 04/16/17 13:42 04/16/17 20:00 04/16/17 20:00 04/16/17 20:00 04/16/17 20:00 Laboratory Results 04/16/17 19:30 04/15/17 04/16/17 04/17/17 05:59 05:59 05:59 Intake Total 1136 Output Total 500 Balance 636 ICD10 Worksheet Patient Problems: Problems Problem Status Onset Lower GI bleed Acute Ankylosing spondylitis Acute Severe anemia Acute
[2017-04-16 23:50] LABS: HEMATOCRIT 17.8 % (40.0-51.0); HEMOGLOBIN 5.7 g/dL (13.7-17.5)
[2017-04-17] MEDS: PANTOPRAZOLE SODIUM 80 MG in NS 100 ML IV SCH ×3 (02:37→22:43)
[2017-04-17 02:45] LABS: % IMMATURE GRANULYOCYTES 0.2 % (0.0-1.1); ABSOLUTE IMMATURE GRANULOCYTES 0.01 10^3/uL (0.00-0.10); ADD DIFF? NO; ADD MORPH? NO; ADD SCAN? NO; ATYPICAL LYMPHOCYTE FLAG 20 (0-99); FRAGMENT RBC FLAG 0 (0-99); HEMATOCRIT 25.4 % (40.0-51.0); HEMOGLOBIN 8.3 g/dL (13.7-17.5); LEFT SHIFT FLG 0 (0-99); LIPEMIA HEMOLYSIS FLAG 80 (0-99); MEAN CELL HEMOGLOBIN 29.6 pg (27.9-34.1); MEAN CELL HEMOGLOBIN CONCENTR. 32.7 g/dL (32.4-36.7); MEAN CELL VOLUME 90.7 fL (81.5-99.8); PLATELET CLUMPS FLAG 0 (0-99); PLATELET COUNT 195 10^3/uL (150-400); RED CELL DISTRIBUTION WIDTH 13.7 % (11.5-15.2)
[2017-04-17 03:01] LABS: ANION GAP 7 mEq/L (8-16); CALCIUM 7.8 mg/dL (8.5-10.4); CARBON DIOXIDE 24 mEq/l (22-31); CHLORIDE 109 mEq/L (97-110); CREATININE 0.8 mg/dL (0.7-1.3); GLOMERULAR FILTRATION RATE > 60; GLUCOSE 95 mg/dL (70-100); POTASSIUM 3.8 mEq/L (3.5-5.2); SODIUM 140 mEq/L (134-144)
--- NOTE | 2017-04-17 07:52 | GCON ---
[f rep st] CONSULTATION DATE OF CONSULTATION: 04/16/2017 CONSULTING PHYSICIAN: Octaviano Toussaint MD REASON FOR CONSULTATION: Bright red blood per rectum. HISTORY OF PRESENT ILLNESS: The patient is a 61-year-old male who was recently admitted to [facility] last week with complaints of bright red blood per rectum, presents with recurrence of his symptoms. The patient, who has a remote history of peptic ulcer disease approximately 30 years ago, ankylosing spondylitis, initially presented to the hospital with bright red blood per rectum. He had multiple bowel movements that were bright red. During his stay, he had an upper endoscopy and colonoscopy. On colonoscopy, he was found to have descending colon and sigmoid diverticula as well as minimal erosions in the ileum. Biopsies of the ileum are pending. He states he was doing well on discharge, but on the day of admission, he had 5 bowel movements of bright red blood. He denies any abdominal pain. He denies any exacerbating or alleviating factors to his symptoms. He does have minimal symptoms of shortness of breath. I am being asked by Dr. Toussaint to see Emil in consultation regarding his bright red blood per rectum. PAST MEDICAL HISTORY: 1. Gastrointestinal bleeding. 2. Ankylosing spondylitis. 3. Superficial venous thrombosis. 4. Gastroesophageal reflux disease. PAST SURGICAL HISTORY: None. SOCIAL HISTORY: Positive alcohol. No significant tobacco use. FAMILY HISTORY: Negative for colon cancer. Mother: Alcohol. ALLERGIES: NKDA. MEDICATIONS: 1. Tramadol. 2. Protonix. 3. Multivitamin. REVIEW OF SYSTEMS: A 14-point comprehensive review of systems was asked. Pertinent positives and negatives per HPI. PHYSICAL EXAM: VITALS: Blood pressure 130/80, heart rate 74, respiration rate 16, temperature 36.0. GENERAL: Awake, alert, oriented x3. No distress. HEENT : Anicteric sclerae. Moist mucosa. NECK: No JVD. CARDIOVASCULAR: Regular rate and rhythm. Positive S1, S2. No murmurs or gallops appreciated. LUNGS: Clear to auscultation bilaterally. No wheezes, rales or rhonchi. ABDOMEN: Soft, nontender, nondistended. Positive bowel sounds. No guarding. No rebound. EXTREMITIES: No clubbing, cyanosis or edema. NEUROLOGIC: 2-12 grossly intact. PSYCH: Normal affect. MUSCULOSKELETAL: No joint deformities. LABORATORY DATA: Blood work: WBCs 9.7, hemoglobin 8.2, hematocrit 25.4, platelets 293. Sodium 140, potassium 3.8, chloride 102, bicarb 23, BUN 19, creatinine 1.2. ASSESSMENT AND PLAN: 1. Bright red blood per rectum- recent EGD and colonoscopy with no cause found but did have left sided diverticulosis. Diverticular bleed versus other? At this time, I recommend to obtain a bleeding scan. Suspect diverticular bleed due to clinical history. Could consider possible enteroscopy versus repeat colonoscopic evaluation but of lower yield. Also recommend to monitor H and H and transfuse as needed. Avoid NSAIDs. Will follow closely. 2. History of ankylosing spondylitis. Thank you very much for this consultation. /[id number]/MODL MTDD
[2017-04-17 09:13] LABS: HEMATOCRIT 20.3 % (40.0-51.0); HEMOGLOBIN 6.7 g/dL (13.7-17.5)
--- NOTE | 2017-04-17 09:42 | ASMTCMCOM ---
CM Note CM Note Notes: 61 year old male admitted for GIB. In [facility] in late March for GIB and had upper and lower endoscopy with no source of bleed. Patient has a hx of Ankylosing Spondylitis and GERD. Patient having a tagged red blood cell study. CM to follow for discharge needs. Date Signed: 04/17/2017 09:41 AM Electronically Signed By:Lisha Falcon LCSW
[2017-04-17] MEDS: MULTIVITAMINS 1 EACH TAB PO SCH (11:12)
--- NOTE | 2017-04-17 12:40 | HOSPPROG ---
Hospitalist Progress Note Assessment/Plan: 61 yo M with hx of and remote hx of PUD presenting with recurrent GI bleed after recent discharge for same # GI bleed: patient with BRBPR on his last hospital stay and again yesterday prior to admission. Previously underwent EGD/colonoscopy without finding source of bleeding. Yesterday underwent tagged RBC study which was negative. Overnight has continued to drop h/h without any further bloody stool, but has required 4 units of PRBC overnight. Discussed with GI and at this point plan remains uncertain--GI does not want to repeat EGD/colon and plans to discuss options with IR. For now, patient NPO, transfusing, monitoring in SDU. Continue PPI for now # acute blood loss anemia: h/h continued to drop overnight, got 2 units overnight for hct of 17.8 and this am dropped again to 20 and getting another 2 units. No further hematochezia and no n/v either. Plan as above. # hx of : previously on termite renewal inspector nsaids which have been recently discontinued # IP status, high risk with continued active blood loss of uncertain source Care plan reviewed with Dr. Mary and Dr. Whitfield, care plan reviewed at length with patient and his . Subjective: no significant overnight events, required transfusion overnight and this am, has not had further bleeding from rectum Objective: Vital Signs Temp Pulse Resp BP Pulse Ox 36.7 C 75 16 148/73 H 94 04/17/17 11:46 04/17/17 11:46 04/17/17 11:46 04/17/17 11:46 04/17/17 11:46 awake alert nad anicteric op clear rrr no mrg cta b soft nt nd no cce warm dry well perfused oriented appropriate ICD10 Worksheet Patient Problems: Problems Problem Status Onset Lower GI bleed Acute Ankylosing spondylitis Acute Severe anemia Acute
--- NOTE | 2017-04-17 13:39 | GCON ---
[f rep st] CONSULTATION MEETING/EVENT PLANNER CONSULTATION REASON FOR ADMISSION: GI bleed. HISTORY OF PRESENT ILLNESS: The patient is an extremely pleasant 61-year-old white male with a past medical history of ankylosing spondylitis and a recent GI bleed. He was discharged in late March with a GI bleed. He returns now with significant anemia and, again, bright red blood per rectum. Waletr barrios underwent endoscopy, last admission. Tagged red cell study to this admission shows no source of bl eeding. Currently, he is resting comfortably. He is being transfused. PAST MEDICAL HISTORY: Significant for GI bleed, ankylosing spondylitis. ALLERGIES: None known to medications. SOCIAL HISTORY: Previous smoker, none for several years. No significant alcohol use. He is . Has excellent family support. MEDICATIONS: Include tramadol, Protonix, and a multivitamin. PHYSICAL EXAM: VITAL SIGNS: Blood pressure is 148/73. Pulse is 75. Respirations 16, temperature 36 .7. Oxygen saturation 94% on room air. GENERAL: He is a thin, but well-developed 61-year-old white male who is resting comfortably, in no acute distress. HEENT: Eyes: PERRL, EOMI. Throat shows no erythema, nor tonsillar hypertrophy. NECK: Supple. There is no cervical adenopathy. HEART: Regul ar rate and rhythm, without murmurs, rubs, or gallops. LUNGS: Clear to auscultation. No wheeze or rhonchi. ABDOMEN: Soft, nontender. Bowel sounds are present in all 4 quadrants. EXTREMITIES: No clubbing, cyanosis, or edema. LABORATORY DATA: White count 4.2, hemoglobin 6.7, hematocrit 20, platelet count is 195. Sodium 140, potassium 3.8, chloride 109, CO2 24, BUN 16, creatinine 0.8. Glucose is 95. Nuclear medicine GI bl eed study showed no evidence of active bleeding. IMPRESSION: 1. Anemia. 2. Gastrointestinal bleed, unclear source at this time. 3. Ankylosing spondylitis. RECOMMENDATION: 1. Agree with appropriate transfusion. 2. Deep vein thrombosis and pulmonary embolism prophylaxis, holding anticoagulation for now. 3. Stress ulcer prophylaxis. 4. GI to see the patient. /[id number]/MODL
[2017-04-17 15:06] LABS: HEMATOCRIT 30.9 % (40.0-51.0); HEMOGLOBIN 10.4 g/dL (13.7-17.5)
[2017-04-17 15:53] LABS: INR 1.09 (0.83-1.16)
[2017-04-17 15:54] LABS: APTT 29.2 SEC (23.0-38.0)
[2017-04-17 16:01] LABS: HEMATOCRIT 31.3 % (40.0-51.0); HEMOGLOBIN 10.4 g/dL (13.7-17.5)
[2017-04-17] MEDS: NS 1,000 ML IV SCH (16:17)
--- NOTE | 2017-04-17 16:27 | SOAPPROG ---
SOAP Progress Note Assessment/Plan: Assessment: Plan: 04/16/17 15:21 GI Note A/P 1. GI bleed lower- recurrent. Prior EGD and colonoscopy last week. Suspect diverticular bleed Recommend to proceed with bleeding scan. Discussed with hospitalist. See dictated consult for details. 04/17/17 16:25 A/P 1. GI bleed- suspected diverticular? S/p EGD, colonoscopy and tagged rbc scan. No obvious source of bleed. Discussed case with IR and patient. Will proceed with angiogram. Risks and benefits discussed with him. Keep NPO Subjective: cc: Follow up GI bleed No recent BM. No abdominal pain Objective: Vital Signs Temp Pulse Resp BP Pulse Ox 37.1 C 67 14 164/78 H 94 04/17/17 15:44 04/17/17 15:44 04/17/17 15:44 04/17/17 15:44 04/17/17 11:46 Laboratory Results 04/17/17 15:55 PT 14.0 SEC (12.0-15.0) 04/17/17 15:00 INR 1.09 (0.83-1.16) 04/17/17 15:00 Physical Exam - Physical Exam General Appearance: alert, no apparent distress EENT: No scleral icterus (R), No scleral icterus (L) Respiratory: normal breath sounds, No rales, No rhonchi, No wheezing Cardiac/Chest: regular rate, rhythm, No bradycardia, No tachycardia, No diastolic murmur, No systolic murmur Abdomen: non-tender, soft, No distended, No guarding, No rebound Skin: normal color Neuro/Psych: normal mood/affect, oriented x 3, 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
[2017-04-17 22:27] LABS: HEMATOCRIT 32.7 % (40.0-51.0); HEMOGLOBIN 11.1 g/dL (13.7-17.5)
[2017-04-18] MEDS: NS 1,000 ML IV SCH (05:09)
[2017-04-18 05:46] LABS: % IMMATURE GRANULYOCYTES 0.5 % (0.0-1.1); ABSOLUTE IMMATURE GRANULOCYTES 0.03 10^3/uL (0.00-0.10); ADD DIFF? NO; ADD MORPH? NO; ADD SCAN? NO; ATYPICAL LYMPHOCYTE FLAG 20 (0-99); FRAGMENT RBC FLAG 0 (0-99); HEMATOCRIT 30.1 % (40.0-51.0); HEMOGLOBIN 9.9 g/dL (13.7-17.5); LEFT SHIFT FLG 0 (0-99); LIPEMIA HEMOLYSIS FLAG 80 (0-99); MEAN CELL HEMOGLOBIN 29.3 pg (27.9-34.1); MEAN CELL HEMOGLOBIN CONCENTR. 32.9 g/dL (32.4-36.7); MEAN CELL VOLUME 89.1 fL (81.5-99.8); MEAN PLATELET VOLUME 9.9 fL (8.7-11.7); PLATELET CLUMPS FLAG 0 (0-99); PLATELET COUNT 187 10^3/uL (150-400); RED BLOOD CELL COUNT 3.38 10^6/uL (4.40-6.38); RED CELL DISTRIBUTION WIDTH 13.7 % (11.5-15.2)
[2017-04-18 05:48] LABS: ANION GAP 6 mEq/L (8-16); CALCIUM 8.5 mg/dL (8.5-10.4); CARBON DIOXIDE 23 mEq/l (22-31); CHLORIDE 107 mEq/L (97-110); CREATININE 0.9 mg/dL (0.7-1.3); GLOMERULAR FILTRATION RATE > 60; GLUCOSE 80 mg/dL (70-100); POTASSIUM 3.7 mEq/L (3.5-5.2); SODIUM 136 mEq/L (134-144)
[2017-04-18] MEDS: PANTOPRAZOLE SODIUM 80 MG in NS 100 ML IV SCH (08:26)
[2017-04-18] MEDS: MULTIVITAMINS 1 EACH TAB PO SCH (08:27)
[2017-04-18] MEDS ORDERED: fentaNYL 100 MCG/2 ML INJ ONE (08:45)
[2017-04-18] MEDS ORDERED: MIDAZOLAM 2 MG/2 ML VIAL ONE (08:46)
[2017-04-18] MEDS ORDERED: IOPAMIDOL (ISOVUE-300) 100 ML BTL ONE (09:21)
--- NOTE | 2017-04-18 10:25 | POSTOPPROG ---
Post Op Note Date of Operation: 04/18/17 Surgeon: John Gonsalves Anesthesia: IV Sedation Pre-op Diagnosis: GI bleed Post-op Diagnosis: Same Indication: GI bleed Procedure: Visceral angiogram Findings: No angiographic evidence of active bleeding. See report for details. Inf/Abcess present in the surg proc area at time of surgery?: No Depth: Superfical (Skin SQ) EBL: Minimal Complications: No immediate
--- NOTE | 2017-04-18 13:00 | PDDCSUM ---
Discharge Summary Discharge Summary: Dates of service 04/16-04/18/17 consultations: GI, pulmonary, IR Procedures performed: tagged RBC study, angiography Hospital course by problem: # GI bleed: patient with BRBPR on his last hospital stay and again yesterday prior to admission. Previously underwent EGD/colonoscopy without finding source of bleeding. Now s/p tagged rbc study--negative and visceral angiography-- negative. h/h have been stable. GI recommends discharge and consider OP f/u if recurs or for consideration of capsule endoscopy. Return precautions stressed. # acute blood loss anemia: s/p 4 units and h/h stable since then, as above # hx of : previously on senior living nsaids which have been recently discontinued dc home f/u with GI-consider capsule endoscopy, if bleeding recurs will need urgent evaluation > 35 min spent in dc of patient more than half in counseling of patient regarding f/u care plans
--- NOTE | 2017-04-18 15:55 | SOAPPROG ---
SOAP Progress Note Assessment/Plan: Assessment: Plan: 04/16/17 15:21 GI Note A/P 1. GI bleed lower- recurrent. Prior EGD and colonoscopy last week. Suspect diverticular bleed Recommend to proceed with bleeding scan. Discussed with hospitalist. See dictated consult for details. 04/17/17 16:25 A/P 1. GI bleed- suspected diverticular? S/p EGD, colonoscopy and tagged rbc scan. No obvious source of bleed. Discussed case with IR and patient. Will proceed with angiogram. Risks and benefits discussed with him. Keep NPO 04/18/17 15:54 A/P 1. GI bleed- suspected diverticular? Had prior EGD and colonoscopy. + diverticulosis. Had recent bleeding scan as well as angiogram which were unrevealing. Did have inflammation on biopsies of the terminal ileum but bleed of this magnitude atypical of Crohns. From GI perspective, ok to discharge home. If any signs of GI bleeding will need to come back and this was discussed in detail. 2. Ileitis- Crohns versus other? Will workup as outpatient. Subjective: cc: Follow up GI bleed No complaints. No recent BM. Objective: Vital Signs Temp Pulse Resp BP Pulse Ox 36.7 C 63 14 153/68 H 92 04/18/17 12:00 04/18/17 13:01 04/18/17 13:01 04/18/17 13:01 04/18/17 13:01 Laboratory Results 04/18/17 05:06 04/18/17 05:06 04/17/17 04/18/17 04/19/17 05:59 05:59 05:59 Intake Total 1790 Balance 1790 PT 14.0 SEC (12.0-15.0) 04/17/17 15:00 INR 1.09 (0.83-1.16) 04/17/17 15:00 Physical Exam - Physical Exam General Appearance: alert, no apparent distress EENT: No scleral icterus (R), No scleral icterus (L) Respiratory: lungs clear, normal breath sounds Cardiac/Chest: regular rate, rhythm, No bradycardia, No tachycardia, No diastolic murmur, No systolic murmur Abdomen: normal bowel sounds, non-tender, soft, No distended, No guarding, No rebound, No hepatomegaly, No splenomegaly Skin: normal color Extremities: normal range of motion Neuro/Psych: normal mood/affect, oriented x 3, 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
[2017-04-18 16:04] VITALS: BP 156/81; PULSE 79; RESP 16; TEMP 98.1; O2SAT 89
--- NOTE | 2017-04-19 16:41 | ASDISCHSUM ---
Discharge Information Plan Status:Home with No Needs Medically Cleared to Leave: Discharge Date:04/18/2017 05:12 PM CM D/C Disposition:Home, Routine, Self-Care ADT D/C Disposition:Home, Routine, Self-Care Projected Discharge Date:04/18/2017 05:12 PM Transportation at D/C:Family Discharge Delay Reason: Follow-Up Date:04/18/2017 05:12 PM Discharge Slot: Final Diagnosis:GIB Placement Information Patient Contact Information Contact Name:KELLIE Relationship: Address:[address] [facility] City:[place] Phone: [facility]/Zip Code:[place] [address] Email: Financial Information Financial Class:HMO and PPO Plans Primary Plan Desc:HMO [employer] Primary Plan Number:[id number] Secondary Plan Desc: Secondary Plan Number: Assessment Information [facility] CM Progress Note CM Note CM Note Notes: 61 year old male admitted for GIB. In [facility] in late March for GIB and had upper and lower endoscopy with no source of bleed. Patient has a hx of Ankylosing Spondylitis and GERD. Patient having a tagged red blood cell study. CM to follow for discharge needs. Date Signed: 04/17/2017 09:41 AM Electronically Signed By:Lisha Falcon LCSW Intervention Information
== END 2017-04-18 17:12 | disposition home or self-care (01) | DRG 378 ==
LOC: INTOOBSV 13:49 → F2N 15:50 → OBSVTOIN 04-17 09:30
PROVIDERS: ADMIT Internal Medicine; ATTEND Internal Medicine
PROC: 30233N1 Transfusion of Nonautologous Red Blood Cells into Peripheral Vein, Percutaneous Approach (ICD-10-PCS; principal; 2017-04-17)
DX: K92.2 Gastrointestinal hemorrhage, unspecified (principal); D62 Acute posthemorrhagic anemia; K21.9 Gastro-esophageal reflux disease without esophagitis; M45.9 Ankylosing spondylitis of unspecified sites in spine; K57.92 Diverticulitis of intestine, part unspecified, without perforation or abscess without bleeding; Z87.891 Personal history of nicotine dependence
CPT/HCPCS: 82947-QW; A9560; C1769; C1894; G0378; J1642; J1644; J2250; J3010; P9016; Q9967